=== PATIENT | female | born 1955 | race Caucasian/White ===

== ENCOUNTER 2019-01-18 10:26 | Outpatient (CLI) | payer OTHER ==
--- NOTE | 2019-01-18 12:49 | BD ---
DEXA BONE MINERAL DENSITY STUDY: HISTORY: Osteoporosis screening. Postmenopausal female. COMPARISON: None. FINDINGS: LUMBAR SPINE BMD (g/cm2) T-SCORE Z-SCORE L1 1.033 0.4 1.9 L2 1.154 1.1 2.8 L3 1.143 0.5 2.3 L4 1.294 2.1 3.9 TOTAL 1.160 1.0 2.7 BMD (g/cm2) T-SCORE Z-SCORE LEFT FEMORAL NECK 0.730 -1.1 0.4 TOTAL LEFT HIP 1.110 1.4 2.5 TEN YEAR FRACTURE RISK: Major osteoporotic fracture: 7% Hip fracture: 0.5% IMPRESSION: Osteopenia with fracture risk as above. POS: OFF
--- NOTE | 2019-01-19 08:49 | MMO ---
Bilateral MAMMO Bilat Screen [facility]DI+JENNIFER. CLINICAL HISTORY: Patient is 63 years old and is seen for screening. The patient has no family history of breast cancer. The patient has no personal history of cancer. VIEWS: The views performed were: bilateral craniocaudal with tomosynthesis and bilateral mediolateral oblique with tomosynthesis. FILMS COMPARED: The present examination has been compared to a prior imaging study performed at [facility] on 12/03/2005. This study has been interpreted with the assistance of computer-aided detection. MAMMOGRAM FINDINGS: There are scattered fibroglandular densities. There is a focal asymmetry measuring 9 millimeters seen in the right breast at 3 o'clock. In the left breast, there are no suspicious masses, calcifications or areas of architectural distortion. IMPRESSION: FOCAL ASYMMETRY IN THE RIGHT BREAST REQUIRES ADDITIONAL EVALUATION. SPOT COMPRESSION IS RECOMMENDED. AN ULTRASOUND EXAM IS RECOMMENDED IF NEEDED. THE RESULTS OF THIS EXAM WERE SENT TO THE PATIENT. ACR BI-RADS Category 0 - Incomplete: Need additional imaging evaluation. [facility] will notify the patient of the need for additional imaging services. MAMMOGRAPHY NOTE: 1. A negative mammogram report should not delay a biopsy if a dominant of clinically suspicious mass is present. 2. Approximately 10% to 15% of breast cancers are not detected by mammography. 3. Adenosis and dense breasts may obscure an underlying neoplasm. Reported by: Eagle WATKINS Electonically Signed: [id number]
== END 2019-01-18 10:27 | disposition home or self-care (01) ==
LOC: BICMAMMO 10:26
PROVIDERS: ATTEND Family Medicine
DX: Z12.31 Encounter for screening mammogram for malignant neoplasm of breast (principal); Z13.820 Encounter for screening for osteoporosis; N95.8 Other specified menopausal and perimenopausal disorders; M85.852 Other specified disorders of bone density and structure, left thigh
CPT/HCPCS: 77063; 77067; 77080

== ENCOUNTER 2019-01-22 12:24 | Outpatient (CLI) | payer OTHER ==
--- NOTE | 2019-01-22 13:34 | MMO ---
Right Breast MAMMO Unilat Diag DDI RT+JENNIFER. CLINICAL HISTORY: Patient is 63 years old and is seen for additional evaluation requested at current screening. The patient has no family history of breast cancer. The patient has no personal history of cancer. VIEWS: The views performed were: right craniocaudal with tomosynthesis; right mediolateral oblique with tomosynthesis; and right mediolateral with tomosynthesis. FILMS COMPARED: The present examination has been compared to prior imaging studies performed at [facility] on 01/18/2019 and 01/22/2019, and at [facility] on 12/03/2005. This study has been interpreted with the assistance of computer-aided detection. MAMMOGRAM FINDINGS: There are scattered fibroglandular densities. The mass at 3:00 right breast is complex on US with solid and cystic components and should be biopsied. IMPRESSION: FINDING IN THE RIGHT BREAST IS SUSPICIOUS. AN ULTRASOUND-GUIDED BREAST BIOPSY IS RECOMMENDED. THE RESULTS OF THIS EXAM WERE SENT TO THE PATIENT. ACR BI-RADS Category 4 - Suspicious abnormality - biopsy should be considered D/W pt in person at 1330 hrs. MAMMOGRAPHY NOTE: 1. A negative mammogram report should not delay a biopsy if a dominant of clinically suspicious mass is present. 2. Approximately 10% to 15% of breast cancers are not detected by mammography. 3. Adenosis and dense breasts may obscure an underlying neoplasm. Reported by: DION STEVEN MD Electonically Signed: [id number]
--- NOTE | 2019-01-22 14:48 | ULT ---
RIGHT BREAST ULTRASOUND: Date: 01/22/19 HISTORY: Abnormal mammogram. FINDINGS: Correlation is made with mammograms of 01/18/19 and today. Sonographic evaluation of the 3 o'clock position of the right breast demonstrates a 9 x 7 x 7 mm comp ravinder mass with solid and cystic components, corresponding to the mammographic finding, 3.0 cm from the nipple. IMPRESSION: BI-RADS Category 4 - Suspicious abnormality. Ultrasound guided biopsy of the right breast mass is rec ommended. Discussed in person with the patient at 1330 hours. CODE CR. POS: OFF
== END 2019-01-22 12:25 | disposition home or self-care (01) ==
LOC: BICMAMMO 12:24
PROVIDERS: ATTEND Family Medicine
DX: R92.8 Other abnormal and inconclusive findings on diagnostic imaging of breast (principal)
CPT/HCPCS: G0279

== ENCOUNTER → 2019-01-26 | Day surgery (SDC) | payer OTHER ==
--- NOTE | 2019-01-26 13:57 | ULT ---
US Breast Bx US Guided History: Mass Comparison: Ultrasound January 22, 2019 Findings: Patient was brought to the ultrasound suite. All questions were answered. Informed consent was obtained. Timeout performed. The patient's right breast was prepped and draped in normal sterile fashion. Right 3:00 mass was mary nicole visualized. 5 mL lidocaine was instilled into the superficial and deep soft tissues. After adequate anesthesia, a total of 4 passes was obtained. Patient tolerated procedure well without complication. Clip was placed in good position on post clip mammogram. Impression: Technically successful ultrasound-guided right breast mass biopsy.
--- NOTE | 2019-01-26 14:00 | MMO ---
Right Breast MAMMO Unilat Diag DDI RT. CLINICAL HISTORY: Patient is 63 years old and is seen for diagnostic exam. VIEWS: The views performed were: . FILMS COMPARED: The present examination has been compared to prior imaging studies performed at [facility] on 01/18/2019 and 01/22/2019, and at [facility] on 12/03/2005. This study has been interpreted with the assistance of computer-aided detection. MAMMOGRAM FINDINGS: Right biopsy clip. IMPRESSION: FINDING IN THE RIGHT BREAST IS CONFIRMED UTILIZING POST PROCEDURE MAMMOGRAM. THE RESULTS OF THIS EXAM WERE SENT TO THE PATIENT. MAMMOGRAPHY NOTE: 1. A negative mammogram report should not delay a biopsy if a dominant of clinically suspicious mass is present. 2. Approximately 10% to 15% of breast cancers are not detected by mammography. 3. Adenosis and dense breasts may obscure an underlying neoplasm. Reported by: DION STEVEN MD Electonically Signed: [id number]
== END ==
LOC: BICULT 12:19
PROVIDERS: ATTEND Family Medicine
PROC: 0H9T3ZX Drainage of Right Breast, Percutaneous Approach, Diagnostic (ICD-10-PCS; principal; 2019-01-26)
DX: N60.91 Unspecified benign mammary dysplasia of right breast (principal)
CPT/HCPCS: 19083; 88305; 88341; 88342

== ENCOUNTER 2019-02-20 07:04 | Day surgery (SDC) | payer OTHER ==
[2019-02-19 10:50] VITALS: BMI 39.3
[2019-02-20] MEDS ORDERED: Ketorolac Tromethamine 30 MG/ML VIAL ONE (08:11)
[2019-02-20 08:40] LABS: #Eosinphils 0.2 thou/uL (0.0-0.7); #Lymphocytes 2.5 thou/uL (1.20-3.40); #Monocytes 0.5 thou/uL (0.11-0.59); #Neutrophils 4.8 thou/uL (1.40-6.50); %Basophils 0.4 % (0.0-1.0); %Lymphocytes 31.4 % (21.0-51.0); %Neutrophils 60.2 % (42.0-75.0); Hemoglobin 14.6 g/dL (12.0-16.0); Mean Corpuscular HGB CONC 31.9 g/dL (32.0-36.0); Mean Corpuscular Volume 84.6 fL (78.0-98.0); Mean Platelet Volume 9.9 fL (7.4-10.4); Platelet Count 195 thou/uL (130-400); RBC Distribution Width 12.8 % (11.5-14.5); Red Blood Cell (RBC) Count 5.43 mill/uL (4.20-5.40)
[2019-02-20 09:17] LABS: Anion Gap 13 mmol/L (10-20); BUN (Urea Nitrogen) 18 mg/dL (9.8-20.1); Calc. Creatinine Clearance 142 mL/min (70-130); Calcium 9.2 mg/dL (7.8-10.44); Carbon Dioxide 24 mmol/L (23-31); Chloride 106 mmol/L (98-107); Estimated GFR-MDRD 81; Glucose 111 mg/dL (80-115); Potassium 4.4 mmol/L (3.5-5.1); Sodium 139 mmol/L (136-145)
--- NOTE | 2019-02-20 09:29 | RAD ---
PA AND LATERAL CHEST: HISTORY: Preoperative evaluation. FINDINGS: The heart size is borderline. The aorta is tortuous. The lungs are well expanded without lobar consol idation, pneumothoraces or pleural effusions. No acute osseous abnormality is seen. IMPRESSION: No acute process. POS: TPC
[2019-02-20] MEDS ORDERED: Fentanyl 100 MCG/2 ML VIAL ONE (09:56)
[2019-02-20] MEDS ORDERED: Midazolam HCl 2 mg/2 ml Vial ONE (09:56)
[2019-02-20] MEDS ORDERED: Bupivacaine HCl 0.25%/Epi 0.0005/PF 10 ML VIAL FS ONE (09:58)
[2019-02-20] MEDS ORDERED: Lidocaine 1% PF 5 ML VIAL ONE (12:05)
[2019-02-20] MEDS ORDERED: PROPOFOL 200 MG/20 ML VIAL ONE (12:05)
[2019-02-20] MEDS ORDERED: Dexamethasone 20 MG/5 ML VIAL ONE (12:05)
[2019-02-20] MEDS ORDERED: Ondansetron PF 4 MG/2 ML Vial ONE (12:05)
--- NOTE | 2019-02-20 12:47 | EKG ---
Test Reason : PREOP Blood Pressure : / mmHG Vent. Rate : 067 BPM Atrial Rate : 067 BPM P-R Int : 132 ms QRS Dur : 082 ms QT Int : 396 ms P-R-T Axes : 023 -16 042 degrees QTc Int : 418 ms Normal sinus rhythm Normal ECG No previous ECGs available Confirmed by DR. Phil VIGIL (3) on 02/20/2019 12:47:17 PM Referred By: KING Confirmed By:DR. Phil VIGIL
[2019-02-20] MEDS ORDERED: HYDROcodone/Acetaminophen 5/325 mg Tablet ONE (13:03)
--- NOTE | 2019-02-21 11:27 | OP ---
DATE OF PROCEDURE: 02/20/2019 PREOPERATIVE DIAGNOSIS: Right breast papilloma with atypia. POSTOPERATIVE DIAGNOSIS: Right breast papilloma with atypia. PROCEDURES PERFORMED: Right breast ultrasound-guided needle localization, right breast needle localized wide excisional biopsy. ANESTHESIA: General endotracheal. INDICATIONS: The patient is an obese 63-year-old female. Recent mammography demonstrated an abnormality in the right breast. Ultrasound-guided biopsy showed this to be a papillary lesion with atypia. For this reason, I had recommended a wide excisional biopsy for complete removal and diagnosis. DESCRIPTION OF OPERATION: Informed consent was obtained. The patient was taken to the operating room, where general anesthesia was obtained with the patient in supine position. Right breast was prepped with ChloraPrep and draped in sterile fashion. Ultrasound was utilized to identify the lesion at approximately the 3 o'clock Radian on the right breast. This was relatively close to the areola, approximately 3 to 4 cm from the nipple. The location of the lesion was marked on the skin in a grid type fashion. I then utilized the ultrasound to place a Kopans wire through the lesion. Additional local anesthetic was infiltrated using 0.25% Marcaine with epinephrine. Transverse incision was created based on needle insertion site. Dissection was carried through skin and subcutaneous tissue. Within the breast, flaps were raised superiorly and inferiorly. I then dissected in a medial to lateral fashion under and around the wire to obtain a wide core of tissue. This was removed intact with what appeared to be good margins around the lesion. The lesion was marked for orientation and submitted to Pathology. Initial mammographic images of the lesion revealed that the clip that had been placed previously was present within the lesion. Meticulous hemostasis was obtained within the wound. It was closed in layers with 3-0 and 4-0 Monocryl. Dermabond was placed externally. Additional local anesthetic was infiltrated during closure. There were no complications. Blood loss was negligible. The patient tolerated the procedure well and was taken to recovery room in stable condition. Job ID: [id number]
== END 2019-02-20 13:30 | disposition home or self-care (01) ==
LOC: SDC 07:04
PROVIDERS: ATTEND Specialist
PROC: 0HBT0ZZ Excision of Right Breast, Open Approach (ICD-10-PCS; principal; 2019-02-20)
DX: D05.11 Intraductal carcinoma in situ of right breast (principal); N60.91 Unspecified benign mammary dysplasia of right breast; M81.0 Age-related osteoporosis without current pathological fracture; E66.01 Morbid (severe) obesity due to excess calories; Z68.38 Body mass index [BMI] 38.0-38.9, adult; Z79.899 Other long term (current) drug therapy
CPT/HCPCS: 71046; 76098; 80048; 85025; 88307; 93005; 93010; J0131; J0690; J1100; J1885; J2001; J2250; J2405; J2704; J3010

== ENCOUNTER 2019-03-06 08:36 | Day surgery (SDC) | payer OTHER, SELFPAY ==
[2019-03-05 13:13] VITALS: BMI 40.5
[2019-03-06] MEDS ORDERED: Glycopyrrolate 0.2 MG/ML 5 ML SYRINGE ONE (09:49)
[2019-03-06] MEDS ORDERED: PROPOFOL 200 MG/20 ML VIAL ONE (09:49)
[2019-03-06] MEDS ORDERED: Dexamethasone 20 MG/5 ML VIAL ONE (09:49)
[2019-03-06] MEDS ORDERED: Rocuronium Bromide 10 MG/ML (10ML VIAL) ONE (09:49)
[2019-03-06] MEDS ORDERED: Ondansetron PF 4 MG/2 ML Vial ONE (09:49)
[2019-03-06] MEDS ORDERED: Ketorolac Tromethamine 30 MG/ML VIAL ONE (10:06)
[2019-03-06] MEDS ORDERED: Lidocaine 1% w/Epinephrine 1:100K 20 ML VIAL ONE (13:18)
[2019-03-06] MEDS ORDERED: Bupivacaine 0.25% HCL 30 ML VIAL ONE (13:18)
[2019-03-06] MEDS ORDERED: Sodium Bicarbonate 2.5 MEQ/5 ML VIAL ONE (13:18)
[2019-03-06] MEDS ORDERED: Midazolam HCl 2 mg/2 ml Vial ONE (13:34)
[2019-03-06] MEDS ORDERED: Fentanyl 250 MCG/5 ML VIAL ONE (13:34)
--- NOTE | 2019-03-07 12:28 | OP ---
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 PROCEDURE PERFORMED: Re-excision of right breast superior and medial lumpectomy margins. ANESTHESIA: General with laryngeal mask airway. INDICATIONS: Patient is a 63-year-old female. She had recent surgery to remove an atypical papillary tumor in her right breast. Although the entire papillary tumor was removed without evidence of malignancy within the lesion, there was surrounding ductal carcinoma in situ, which was positive on one margin and within about a millimeter on the second margin. I therefore recommended re-excision of lumpectomy margins and she returns for this purpose. DESCRIPTION OF OPERATION: Informed consent was obtained. Patient was taken to the operating room, where general anesthesia was obtained, the patient in the supine position. Right breast was prepped with ChloraPrep and draped in sterile fashion. Local anesthetic was infiltrated using 0.25% Marcaine with epinephrine. Prior lumpectomy incision was reopened on the medial right breast. Dissection was carried in to the breast and down into the biopsy cavity. The seroma was aspirated. The lumpectomy margins were easily visualized. The excision had extended laterally under the nipple-areolar complex. I turned my attention initially to the medial aspect. I raised the flap of tissue about a centimeter into the breast and then excised the entire medial margin extending slightly onto the inferior and posterior margin, obtaining almost this additional centimeter of tissue. The specimen was removed intact and tagged for orientation and submitted to pathology. I then turned my attention to the superior margin, where a similar technique was utilized to dissect the superior margin intact. It was also tagged for orientation and submitted to pathology. The wound was irrigated. Meticulous hemostasis was obtained with electrocautery. The wound was closed in layers with 3-0 and 4-0 Monocryl. Additional local anesthetic was infiltrated during closure. Dermabond was placed externally. There were no complications. Patient tolerated the procedure well and was taken to recovery room in stable condition. Job ID: [id number]
== END 2019-03-06 16:20 | disposition home or self-care (01) ==
LOC: SDC 08:36
PROVIDERS: ATTEND Specialist
PROC: 0HBT0ZZ Excision of Right Breast, Open Approach (ICD-10-PCS; principal; 2019-03-06)
DX: D05.11 Intraductal carcinoma in situ of right breast (principal); N60.11 Diffuse cystic mastopathy of right breast; M81.0 Age-related osteoporosis without current pathological fracture; Z79.899 Other long term (current) drug therapy
CPT/HCPCS: 88307; J0131; J0690; J1100; J1885; J2250; J2405; J2704; J3010; S0020

== ENCOUNTER 2020-02-27 08:05 | Outpatient (CLI) | payer MEDICARE, OTHER ==
--- NOTE | 2020-02-27 08:40 | MMO ---
Bilateral MAMMO Bilat Diag [facility]DI[facility]JENNIFER. CLINICAL HISTORY: Patient is 64 years old and is seen for diagnostic exam. The patient has the following family history of breast cancer: sister, at age 68, malignant (generic). The patient has a history of Excisional biopsy procedure revealed ductal carcinoma in situ. in the right breast in February,. The patient has a history of right Lumpectomy in January, - dcis. VIEWS: The views performed were: bilateral craniocaudal with tomosynthesis; bilateral mediolateral oblique with tomosynthesis; and bilateral mediolateral with tomosynthesis. FILMS COMPARED: The present examination has been compared to prior imaging studies performed at [facility] on 01/18/2019, 01/22/2019 and 01/26/2019. This study has been interpreted with the assistance of computer-aided detection. MAMMOGRAM FINDINGS: There are scattered fibroglandular densities. There is a post-surgical scar seen in the right breast. In the left breast, there are no suspicious masses, calcifications or areas of architectural distortion. IMPRESSION: POST-SURGICAL SCAR IN THE RIGHT BREAST IS PROBABLY BENIGN. FOLLOW-UP IN 6 MONTHS IS RECOMMENDED. THE RESULTS OF THIS EXAM WERE SENT TO THE PATIENT. ACR BI-RADS Category 3 - Probably benign finding - short interval follow-up suggested. [facility] will notify the patient of the need for additional imaging services. MAMMOGRAPHY NOTE: 1. A negative mammogram report should not delay a biopsy if a dominant of clinically suspicious mass is present. 2. Approximately 10% to 15% of breast cancers are not detected by mammography. 3. Adenosis and dense breasts may obscure an underlying neoplasm. Reported by: DION STEVEN MD Electonically Signed: [id number]
== END 2020-02-27 08:06 | disposition home or self-care (01) ==
LOC: BICMAMMO 08:05
PROVIDERS: ATTEND Family Medicine
DX: D05.11 Intraductal carcinoma in situ of right breast (principal); Z98.890 Other specified postprocedural states
CPT/HCPCS: 77066; G0279

== ENCOUNTER 2021-03-02 10:06 | Outpatient (CLI) | payer MEDICARE, OTHER | END 2021-03-02 10:07 | disposition home or self-care (01) | LOC: BICMAMMO 10:06 | PROVIDERS: ATTEND Internal Medicine Hematology & Oncology | DX: Z13.820 Encounter for screening for osteoporosis (principal); Z86.000 Personal history of in-situ neoplasm of breast; Z78.0 Asymptomatic menopausal state | CPT/HCPCS: 77066; 77080; G0279 ==

== ENCOUNTER 2021-06-17 09:46 | Outpatient (CLI) | payer MEDICARE, OTHER | END 2021-06-17 09:47 | disposition home or self-care (01) | LOC: MRI 09:46 | PROVIDERS: ATTEND Family Medicine | DX: M25.561 Pain in right knee (principal); S83.281A Other tear of lateral meniscus, current injury, right knee, initial encounter; S83.241A Other tear of medial meniscus, current injury, right knee, initial encounter; M22.8X1 Other disorders of patella, right knee; S86.911A Strain of unspecified muscle(s) and tendon(s) at lower leg level, right leg, initial encounter ==

== ENCOUNTER 2022-03-03 14:29 | Outpatient (CLI) | payer MEDICARE, OTHER | END 2022-03-03 14:30 | disposition home or self-care (01) | LOC: BICMAMMO 14:29 | PROVIDERS: ATTEND Specialist | DX: Z09 Encounter for follow-up examination after completed treatment for conditions other than malignant neoplasm (principal); Z86.000 Personal history of in-situ neoplasm of breast | CPT/HCPCS: 77066; G0279 ==

== ENCOUNTER 2022-11-10 13:41 | Outpatient (CLI) | payer OTHER | END 2022-11-10 13:42 | disposition home or self-care (01) | LOC: DTY/OP 13:41 | PROVIDERS: ATTEND Specialist | DX: E66.01 Morbid (severe) obesity due to excess calories (principal) | CPT/HCPCS: 97802 ==

== ENCOUNTER 2022-12-17 09:30 | Outpatient (CLI) | payer MEDICARE ==
[2022-12-17 10:40] LABS: #Basophils 0.1 10x3/uL (0.0-0.2); #Eosinphils 0.2 10x3/uL (0.0-0.5); #Monocytes 0.7 10x3/uL (0.0-1.1); #Neutrophils 6.7 10x3/uL (1.5-8.4); %Basophils 0.8 % (0.0-2.0); %Lymphocytes 23.6 % (18.0-47.0); %Monocytes 6.8 % (0.0-10.0); %Neutrophils 66.6 % (40.0-75.0); Hematocrit 44.7 % (34.9-44.5); Hemoglobin 14.8 g/dL (12.0-15.5); Mean Corpuscular HGB CONC 33.1 g/dL (32.0-36.0); Mean Corpuscular Hemoglobin 28.6 pg (27.0-33.0); Mean Corpuscular Volume 86.5 fl (81.6-98.3); Mean Platelet Volume 11.6 fl (7.4-10.4); Platelet Count 247 10x3/uL (150-450); RBC Distribution Width 13.3 % (11.5-14.5); Red Blood Cell (RBC) Count 5.17 10x6/uL (3.90-5.03)
[2022-12-17 10:49] LABS: Anion Gap 13 mmol/L (10-20); BUN (Urea Nitrogen) 24 mg/dL (9.8-20.1); Calc. Creatinine Clearance 0 mL/min (70-130); Calcium 9.7 mg/dL (7.8-10.44); Carbon Dioxide 26 mmol/L (23-31); Chloride 105 mmol/L (98-107); Estimated GFR 77; Glucose 101 mg/dL (80-115); Potassium 4.3 mmol/L (3.5-5.1); Sodium 140 mmol/L (136-145)
== END 2022-12-17 09:31 | disposition home or self-care (01) ==
LOC: LABBT 09:30
PROVIDERS: ATTEND Specialist
DX: Z01.812 Encounter for preprocedural laboratory examination (principal); E78.5 Hyperlipidemia, unspecified; E66.01 Morbid (severe) obesity due to excess calories
CPT/HCPCS: 80048; 85025

== ENCOUNTER 2022-12-17 10:00 | Inpatient (IN) | payer MEDICARE ==
[2022-12-17 10:12] VITALS: BMI 35.9
[2022-12-23] MEDS ORDERED: Ketorolac Tromethamine 30 MG/ML VIAL ONE (08:03)
[2022-12-23] MEDS ORDERED: Acetaminophen 500 MG TAB ONE (08:03)
[2022-12-23] MEDS ORDERED: Heparin 5,000 UNITS/ML VIAL ONE (08:03)
[2022-12-23] MEDS ORDERED: Bupivacaine 0.25% HCL 30 ML VIAL ONE (08:50)
[2022-12-23] MEDS ORDERED: EPINEPHrine 1 MG/ML AMP ONE (08:50)
[2022-12-23] MEDS ORDERED: Fentanyl 250 MCG/5 ML VIAL ONE (08:50)
[2022-12-23] MEDS ORDERED: CEFAZOLIN 2 GM VIAL ONE (09:08)
[2022-12-23] MEDS ORDERED: Sodium Chloride 0.9% 100 ML ONE (09:08)
[2022-12-23] MEDS ORDERED: Midazolam HCl 2 mg/2 ml Vial ONE (09:12)
[2022-12-23] MEDS ORDERED: Ondansetron PF 4 MG/2 ML Vial ONE (09:15)
[2022-12-23] MEDS ORDERED: Rocuronium Bromide 10 MG/ML (10ML VIAL) ONE (09:15)
[2022-12-23] MEDS ORDERED: NEOSTIGMINE 3 MG/3 ML SYR 3 MG/3 ML SYRINGE ONE (09:15)
[2022-12-23] MEDS ORDERED: Dexamethasone 20 MG/5 ML VIAL ONE (09:15)
[2022-12-23] MEDS ORDERED: Lidocaine 1% PF 5 ML VIAL ONE (09:15)
[2022-12-23] MEDS ORDERED: PROPOFOL 200 MG/20 ML VIAL ONE (09:15)
[2022-12-23] MEDS ORDERED: Glycopyrrolate 0.2 MG/ML 5 ML SYRINGE ONE (09:15)
[2022-12-23] MEDS ORDERED: Ondansetron HCl/PF 4 MG/2 ML Vial IVP PRN (10:49)
[2022-12-23] MEDS ORDERED: Promethazine HCl 25 MG/ML VIAL IM PRN ×2 (10:49→11:02)
[2022-12-23] MEDS ORDERED: fentaNYL PF 100 MCG/2 ML SYRINGE ONE (10:58)
[2022-12-23] MEDS ORDERED: Morphine 4 MG/ML VIAL SLOW IVP PRN (11:02)
[2022-12-23] MEDS ORDERED: Glucagon 1 MG/ML KIT IM PRN (11:02)
[2022-12-23] MEDS ORDERED: hydrALAZINE 20 MG/ML VIAL SLOW IVP PRN (11:02)
[2022-12-23] MEDS ORDERED: Morphine 2 MG/ML VIAL SLOW IVP PRN (11:02)
[2022-12-23] MEDS ORDERED: Ipratropium/Albuterol 3 ML NEB NEB PRN (11:02)
[2022-12-23] MEDS ORDERED: Dextrose 5% in Water 1,000 ML IV PRN (11:02)
[2022-12-23] MEDS ORDERED: Ondansetron PF 4 MG/2 ML Vial IVP PRN (11:02)
[2022-12-23] MEDS ORDERED: Dextrose 50% Abboject 50 ML SYRINGE SLOW IVP PRN (11:02)
[2022-12-23] MEDS ORDERED: diphenhydrAMINE 50 MG/ML VIAL IVP PRN (11:02)
[2022-12-23] MEDS ORDERED: Ketorolac Tromethamine 30 MG/ML VIAL IVP SCH (12:00)
[2022-12-23] MEDS: D5 1/2 NS w/20 mEq KCL 1,000 ML IV SCH ×2 (12:17→18:24)
[2022-12-23] MEDS: Ketorolac Tromethamine 30 MG/ML VIAL IVP SCH ×2 (13:38→19:39)
[2022-12-23] MEDS: Hydrocodone-Acetamin 15 ML UDCUP PO PRN ×2 (13:42→18:24)
[2022-12-23] MEDS ORDERED: Rosuvastatin 20 MG TAB PO SCH (21:00)
[2022-12-23] MEDS ORDERED: Venlafaxine HCl XR 75 MG CAP PO SCH (21:00)
[2022-12-24] MEDS: Ketorolac Tromethamine 30 MG/ML VIAL IVP SCH ×2 (02:31→08:56)
[2022-12-24 03:58] VITALS: TEMP 98.3
[2022-12-24] MEDS: D5 1/2 NS w/20 mEq KCL 1,000 ML IV SCH ×2 (04:21→10:57)
[2022-12-24 05:59] LABS: #Monocytes 1.1 thou/uL (0.11-0.59); #Neutrophils 11.4 thou/uL (1.40-6.50); %Basophils 0.1 % (0.0-1.0); %Lymphocytes 11.2 % (21.0-51.0); %Monocytes 7.6 % (0.0-10.0); %Neutrophils 80.7 % (42.0-75.0); Hematocrit 41.1 % (36.0-47.0); Hemoglobin 13.6 g/dL (12.0-16.0); Mean Corpuscular HGB CONC 33.1 g/dL (32.0-36.0); Mean Corpuscular Hemoglobin 28.4 pg (27.0-31.0); Mean Corpuscular Volume 85.8 fl (78.0-98.0); Platelet Count 192 10x3/uL (130-400); RBC Distribution Width 13.2 % (11.5-14.5); Red Blood Cell (RBC) Count 4.79 mill/uL (4.20-5.40); White Blood Cell (WBC) Count 14.1 10x3/uL (4.8-10.8)
[2022-12-24 06:28] LABS: Anion Gap 10 mmol/L (10-20); BUN (Urea Nitrogen) 12 mg/dL (9.8-20.1); Calc. Creatinine Clearance 126 mL/min (70-130); Calcium 9.2 mg/dL (7.8-10.44); Carbon Dioxide 22 mmol/L (23-31); Chloride 104 mmol/L (98-107); Estimated GFR 95; Glucose 165 mg/dL (80-115); Potassium 4.1 mmol/L (3.5-5.1); Sodium 132 mmol/L (136-145)
[2022-12-24] MEDS: Hydrocodone-Acetamin 15 ML UDCUP PO PRN (09:00)
[2022-12-24] MEDS ORDERED: Pantoprazole 40 MG VIAL IVP SCH (09:00)
[2022-12-24] MEDS ORDERED: Anastrozole 1 MG TAB PO SCH (09:00)
[2022-12-24] MEDS ORDERED: Ezetimibe 10 MG TAB PO SCH (09:00)
[2022-12-24] MEDS ORDERED: Nebivolol HCl 2.5 MG TAB PO SCH (09:00)
[2022-12-24 09:09] VITALS: BP 129/79
== END 2022-12-24 11:00 | disposition home or self-care (01) | DRG 621 ==
LOC: SURG A 12-23 06:42 → SJJU 12-23 12:16
PROVIDERS: ADMIT Specialist; ATTEND Specialist
PROC: 0DB64Z3 Excision of Stomach, Percutaneous Endoscopic Approach, Vertical (ICD-10-PCS; principal; 2022-12-23)
DX: E66.01 Morbid (severe) obesity due to excess calories (principal); Z68.36 Body mass index [BMI] 36.0-36.9, adult; Z79.82 Long term (current) use of aspirin; Z79.899 Other long term (current) drug therapy; Z90.710 Acquired absence of both cervix and uterus
CPT/HCPCS: 36415; 80048; 85025; 88307; 93005; 93010; A4649; C9113; J0171; J1100; J1644; J1650; J1885; J2250; J2405; J2550; J2704; J3010; J3480; J3490; S0020

== ENCOUNTER 2023-03-17 12:02 | Outpatient (CLI) | payer MEDICARE | END 2023-03-17 12:03 | disposition home or self-care (01) | LOC: BICMAMMO 12:02 | PROVIDERS: ATTEND Specialist | DX: Z12.31 Encounter for screening mammogram for malignant neoplasm of breast (principal); Z80.3 Family history of malignant neoplasm of breast; Z98.890 Other specified postprocedural states | CPT/HCPCS: 77063; 77067 ==